=== PATIENT | female | born 1955 | race Two or more races ===

== ENCOUNTER → 2024-03-17 | Outpatient (CLI) | payer MEDICARE, MEDICAID, SELFPAY ==
--- NOTE | 2024-03-17 13:15 | XR_ITS ---
EXAMINATION: PET/CT FUSION SKULL TO THIGH EXAM DATE AND TIME: March 17, 2024 1343 hours Comparison June 13, 2023 INDICATIONS: Breast cancer diagnosis, restaging CTDI:vol (mGy) 6.51 DLP: (mGycm) 594.92 PROCEDURE: 16.63 mCi FDG was administered intravenously To allow for distribution and uptake of radiotracer, the patient was allowed to rest quietly in a shielded room. Imaging was performed on an integrated 16-slice PET/CT scanner, with scanning from the skull base to the mid thigh. Serum blood glucose at the time of the injection was measured 105 mg/dL. CT scanning was performed without oral or intravenous contrast material. FINDINGS: Head and Neck: There is no theron hypermetabolism in the neck. The visualized portions of the brain are normal in appearance on CT. Chest: There is no theron hypermetabolism in the chest. Left mastectomy Scarring in the left upper lobe There are no pulmonary nodules. Abdomen and Pelvis: There is no theron hypermetabolism in retroperitoneal or pelvic chains. The spleen is normal in size and FDG avidity. Musculoskeletal: Marrow uptake is within normal range. IMPRESSION: No interval metastatic disease
== END | disposition home or self-care (01) ==
LOC: CDIM 12:52
PROVIDERS: PCP Nurse Practitioner Family; Referring Provider Internal Medicine Hematology & Oncology; Visit Provider Internal Medicine Hematology & Oncology
DX: C50.812 Malignant neoplasm of overlapping sites of left female breast (principal); Z85.3 Personal history of malignant neoplasm of breast
CPT/HCPCS: 78815; A9552

== ENCOUNTER 2024-05-16 12:56 | Outpatient (RCR) | payer MEDICARE, MEDICAID, SELFPAY ==
--- NOTE | 2024-05-22 16:05 | CTCFLWUP_ITS ---
Patient: RENEA GUTIERREZ : 1955 Page 4 of 6 FOLLOW UP NOTE DATE OF SERVICE: 05/16/2024 NAME: RENEA GUTIERREZ ACCOUNT: [id number] : 1955 AGE: 68 INTERVAL HISTORY: Patient doing well and denies any new complaints. ONCOLOGY HISTORY: DIAGNOSIS: Malignant neoplasm of overlapping sites of left female breast [ICD10] C50.812 Oligometastatic disease. Patient had recurrence with a 9 mm lymph node at the right mandibular angle. S/p radiation therapy to the right side of the neck (01/21/2023 - 03/24/2023) History of triple negative left breast cancer s/p neoadjuvant chemotherapy followed by bilateral mastectomies, reconstruction with saline implants followed by radiation therapy. DATE OF DIAGNOSIS: 12/18/2022 STAGE/TNM: Stage IV oligometastatic breast cancer triple negative TREATMENT HISTORY: Care?Plan Start?Date Cycle Day Intent HISTORY OF PRESENT ILLNESS: Renea Gutierrez is a 68-year-old ENG speaking female with the following oncology history. May 07, 2020: Ms. Gutierrez had diagnostic mammogram which showed a 7.3 x 6.2 x 6.9 cm mass in the left breast. Left axillary lymph node was about 4 mm with cortical thickening. The biopsy showed high-grade malignant carcinoma HER2/audrey negative, ER, ND negative. She was started on neoadjuvant chemotherapy with AC followed by T. During the second cycle of Taxol patient developed severe allergic reaction. It was discontinued and she was started on carboplatin and gemcitabine. She received total of 2 cycles of carboplatin and gemcitabine. Ms. Gutierrez completed a total of 8 cycles of chemotherapy. Following the chemotherapy she had bilateral mastectomies followed by reconstruction with what appears to be saline implants. Also had radiation therapy to the left chest. Within last 1 year she had at least 4 infectious episodes of the left chest. Her saline implant was removed. Her last infection of the left chest wall was about a month ago. Please refer to oncology clinic for follow-up. 11/27/2022: PET/CT scan? 12/18/2022: CT-guided biopsy of the right cervical lymph node? 01/21/2023?03/24/2023: Ms. Gutierrez had 6600 cGy radiation therapy in 33 fractions to the right side of the neck. 06/13/2023: PET/CT scan? 07/13/2023: CT scan of the chest with IV contrast 10/12/2023: CT scan of the chest without IV contrast OTHER MEDICAL HISTORY/CONDITIONS: Left breast cancer - dx 2019 Sukhjinder carpal tunnel syndrome LEft breast lumpectomy - 10/2019 - [facility] Sukhjinder breast implants - 2020 Removal left breast implant 03/2021 Right knee surgery x 3 x 3 FAMILY HISTORY: Patient?denies?family?cancer?history. 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 None Medications Last Reconciled by Renea Huerta MA on 05/16/2024 ALLERGIES: paclitaxel REVIEW OF SYSTEMS: A complete 14-point review of systems was performed and is negative except as noted in interval history. PHYSICAL EXAMINATION: VITAL SIGNS: Temperature?99.3, B/P?166/81, Oxygen?Saturation?95% Weight?180?lbs PAIN: 0 - No pain ECOG Performance Status: 0 - Asymptomatic and fully active GENERAL APPEARANCE: Appears well, in no apparent distress, appropriately interactive. HEENT: Normocephalic, no temporal wasting, normal conjunctiva, no scleral icterus, normal hearing, lips without lesions, neck normal range of motion. CARDIOVASCULAR: Not assessed. PULMONARY: Normal respiratory effort, no respiratory distress or use of accessory muscles, speaking in full sentences, no tachypnea. EXTREMITIES: No pedal edema or cyanosis. SKIN: Normal skin appearance. NEUROLOGIC: Alert and oriented x4. PSHYCHIATRIC: Appropriate affect, mood normal, behavior normal, intact thought and speech. LABORATORY DATA: I have personally reviewed and interpreted each of the patient?s relevant lab tests, abnormal findings are below: Date 05/11/23 07/13/23 ??WHITE?BLOOD?COUNT?(Thou/mm3) 4.8 6.0 ??RED?BLOOD?COUNT?(Miln/mm3) 4.34 4.30 ??HEMOGLOBIN?(gm/dl) 12.9 12.7 ??HEMATOCRIT?(%) 39.0 38.9 ??PLATELET?COUNT?(Thou/mm3) 152 110?L ??NEUTROPHILS?%,?AUTO?(%) 70 69 ??LYMPH?%,?AUTO?(%) 19 16 ??NEUTROPHILS,?AUTO?(Thou/mm3) 3.4 4.1 ??GLUCOSE,RANDOM?(mg/dL) ? 107?H ??BLOOD?UREA?NITROGEN?(mg/dL) ? 12 ??CREATININE?(mg/dL) ? 0.80 ??SODIUM?(mmol/L) ? 139 ??POTASSIUM?(mmol/L) ? 4.5 ??CHLORIDE?(mmol/L) ? 106 ??CrCl?(CandG)?(ml/min) ? 87.35 ??AST/SGOT?(Unit/L) ? 20 ??ALT/SGPT?(Unit/L) ? 14 ??ALKALINE?PHOSPHATASE?(Unit/L) ? 88 ??BILIRUBIN,?TOTAL?(mg/dL) ? 0.3 ??PROTEIN?TOTAL?(gm/dl) ? 6.7 ??ALBUMIN,?SERUM?(gm/dl) ? 4.4 ??GLOBULIN?(gm/dl) ? 2.3 ??ALBUMIN/GLOBULIN?RATIO ? 1.9 ??CALCIUM,?SERUM?(mg/dL) ? 9.5 ??CALCIUM?SERUM?(CORRECTED)?(mg/dL) ? 9.5 ??CEA?(O*)?(ng/ml) ? 0.8 ASSESSMENT/PLAN: 1) oligometastatic recurrence with a 9 mm hypermetabolic lymph node at the right mandibular angle. Biopsy showed it to be metastatic adenocarcinoma ER negative, ND negative, HER2/audrey 1+ (12/18/2022). S/p radiation therapy to the right side of the neck completed on 03/24/2019. ? History of triple negative left breast cancer s/p neoadjuvant chemotherapy followed by bilateral mastectomies, reconstruction with saline implants followed by radiation therapy. ? CT scan of the chest done on 10/12/2023 showed stable 2 mm pulmonary nodule in the right upper lobe without any new pulmonary nodules. Ventilation today. ? 03/17/[address] scan reviewed and is negative CBC CMP CA 15-3 and naterra minimal residual disease RETURN TO CLINIC: 1 year BILLING AND COMPLIANCE: I reviewed external records from providers outside my specialty as summarized above. I spent a total of 50 minutes on this patient?s care on the day of their visit excluding time spent related to any billed procedures. This time includes time spent with the patient as well as time spent documenting in the medical record, reviewing patients records and tests, obtaining history, placing orders, communicating with other healthcare professionals, counseling the patient, family or caregiver, and/or care coordination for the diagnoses above. Electronically Signed by: Gal Maier MD T: 4:02 PM CC: PCP: Katherin Parsons Referring: Katherin Parsons This document was completed utilizing speech recognition software. Grammatical errors, random word insertions, pronoun errors, and incomplete sentences are an occasional consequence of this system due to software limitations, ambient noise, and hardware issues. Any formal questions or concerns about the content, text or information contained within the body of this dictation should be directly addressed to the provider for clarification.
== END 2024-06-13 23:59 | disposition home or self-care (01) ==
LOC: SCTC 12:56
PROVIDERS: PCP Nurse Practitioner Family; Referring Provider Nurse Practitioner Family; Visit Provider Internal Medicine Hematology & Oncology
DX: C50.812 Malignant neoplasm of overlapping sites of left female breast (principal); C77.0 Secondary and unspecified malignant neoplasm of lymph nodes of head, face and neck; Z17.1 Estrogen receptor negative status [ER-]; Z17.22 Progesterone receptor negative status; Z17.32 Human epidermal growth factor receptor 2 negative status; Z92.3 Personal history of irradiation; Z92.21 Personal history of antineoplastic chemotherapy; Z90.13 Acquired absence of bilateral breasts and nipples; R91.1 Solitary pulmonary nodule
CPT/HCPCS: 99212; G0463

== ENCOUNTER → 2024-05-30 | Outpatient (CLI) | payer MEDICARE, MEDICAID, SELFPAY ==
[2024-05-30 08:20] LABS: Misc Send Out* See Sep Rpt
== END | disposition home or self-care (01) ==
LOC: SCTO 07:56
PROVIDERS: PCP Nurse Practitioner Family; Referring Provider Internal Medicine Hematology & Oncology; Visit Provider Internal Medicine Hematology & Oncology
DX: C50.812 Malignant neoplasm of overlapping sites of left female breast (principal); Z85.3 Personal history of malignant neoplasm of breast